=== PATIENT | female | born 1995 | race African-American/Black ===

== ENCOUNTER 2018-02-16 08:53 | Outpatient (CLI) | payer MEDICAID ==
--- NOTE | 2018-02-16 10:07 | RAD ---
RIGHT FOOT 3 VIEWS: HISTORY: Right foot pain. FINDINGS/IMPRESSION: No bony abnormality is seen. POS: [facility]
--- NOTE | 2018-02-16 10:08 | RAD ---
LEFT WRIST 3 VIEWS: HISTORY: Left wrist pain. FINDINGS: No fracture, dislocation, or bony destruction is seen. If there is tenderness in the anatomic snuffbox and symptoms do not improve, a followup exam should b e obtained in 7-10 days. POS: [facility]
== END 2018-02-16 08:54 | disposition home or self-care (01) ==
LOC: MADRAD 08:53
PROVIDERS: ATTEND Physician Assistant
DX: M79.671 Pain in right foot (principal); M25.532 Pain in left wrist